=== PATIENT | male | born 1955 | race Caucasian/White ===

== ENCOUNTER 2016-10-22 12:22 | Inpatient (IN) | payer BC ==
[~2016-10-22] VITALS: Ht 175.3 cm; Wt 76.1 kg
[2016-10-22 13:05] LABS: BASOPHIL COUNT 0.1 K/uL (0-0.1); EOSINOPHIL (%) 0.7 % (0-5); EOSINOPHIL COUNT 0.1 K/uL (0-0.3); HEMATOCRIT 44.7 % (38.0-50.0); IMMATURE GRANULOCYTE (%) 0.3 % (0.0-0.7); IMMATURE GRANULOCYTE COUNT 0.2 K/uL; MCH 29.7 PG (29.0-34.0); MCV 87.5 FL (86-99); MEAN PLAT.VOLUME 10.1 uM^3 (9.0-12.4); MONOCYTE (%) 15.7 % (3-12); MONOCYTE COUNT 1.1 K/uL (0-0.8); NEUTROPHIL (%) 52.7 % (45-76); NEUTROPHIL COUNT 3.6 K/uL (1.8-6.4); PLATELET COUNT 236 K/uL (156-360); RBC DIS.WIDTH-CV 14.9 % (11.8-14.6); RBC DIS.WIDTH-SD 47.6 % (39-53); RED BLOOD COUNT 5.11 M/uL (4.00-5.50); WHITE BLOOD COUNT 6.7 K/uL (4.1-10.2)
[2016-10-22 13:18] LABS: CHLORIDE 104 mEq/L (99-109); POTASSIUM 4.6 mEq/L (3.7-5.4); SODIUM 137 mEq/L (136-147)
[2016-10-22 13:20] LABS: GLUCOSE 96 mg/dL (70-99)
[2016-10-22 13:21] LABS: ANION GAP 9 MEQ/L (2-14); INTER. NORMALIZED RATIO 1.2; PROTHROMBIN TIME 11.8 (9.2-11.2); PTT 28.2 (25-32)
[2016-10-22 13:24] LABS: GFR ESTIMATE (CALCULATED) > 59 mL/min/; UREA NITROGEN (BUN) 15 mg/dL (9-23)
[2016-10-22 13:32] LABS: TROP-I INTERPRETATION NEGATIVE
[2016-10-22] MEDS ORDERED: TYLENOL EXTRA500 MG PO (16:21)
[2016-10-22] MEDS ORDERED: LITE COAT ASPI325 M1 PO (16:21)
[2016-10-22 18:42] LABS: TROP-I INTERPRETATION NEGATIVE
[2016-10-22 19:59] VITALS: BP 130/91
[2016-10-22 22:18] LABS: TROP-I INTERPRETATION NEGATIVE; TROPONIN-I 0.12 ng/mL (0.0-0.30)
[2016-10-22 23:52] VITALS: BP 130/88
[2016-10-23 04:00] VITALS: BP 113/69
[2016-10-23 06:35] LABS: ANION GAP 10 MEQ/L (2-14); CHLORIDE 103 MEQ/L (99-109); GFR ESTIMATE (CALCULATED) > 59 mL/min/; POTASSIUM 4.2 MEQ/L (3.7-5.4); SAMPLE HEMOLYSIS CHECK 0; SAMPLE ICTERIC CHECK 0; SAMPLE LIPEMIA CHECK 0; SODIUM 137 MEQ/L (136-147); UREA NITROGEN (BUN) 22 mg/dL (9-23)
[2016-10-23 06:36] LABS: GLUCOSE 156 mg/dL (70-99)
[2016-10-23 06:37] LABS: HEMATOCRIT 42.8 % (38.0-50.0); MCH 30.4 PG (29.0-34.0); MCHC 33.6 G/DL (30.0-36.0); MCV 90.5 FL (86-99); MEAN PLAT.VOLUME 11.1 uM^3 (9.0-12.4); PLATELET COUNT 198 K/uL (156-360); RBC DIS.WIDTH-CV 14.7 % (11.8-14.6); RBC DIS.WIDTH-SD 48.7 % (39-53); RED BLOOD COUNT 4.73 M/uL (4.00-5.50)
[2016-10-23 06:38] LABS: WHITE BLOOD COUNT 3.4 K/uL (4.1-10.2)
[2016-10-23 06:52] LABS: TROP-I INTERPRETATION NEGATIVE; TROPONIN-I 0.08 ng/mL (0.0-0.30)
[2016-10-23 07:31] VITALS: BP 139/91
[2016-10-23 11:26] LABS: TROP-I INTERPRETATION NEGATIVE; TROPONIN-I 0.06 ng/mL (0.0-0.30)
[2016-10-23 11:54] VITALS: BP 134/84
[2016-10-23 15:29] VITALS: BP 140/88
[2016-10-23 15:58] LABS: TROP-I INTERPRETATION NEGATIVE; TROPONIN-I 0.11 ng/mL (0.0-0.30)
[2016-10-23 18:19] LABS: TROP-I INTERPRETATION NEGATIVE; TROPONIN-I 0.11 ng/mL (0.0-0.30)
[2016-10-23 19:32] VITALS: BP 138/88
[2016-10-23 22:18] LABS: TROP-I INTERPRETATION NEGATIVE; TROPONIN-I 0.11 ng/mL (0.0-0.30)
[2016-10-23 23:29] VITALS: BP 147/95
[2016-10-24 04:06] VITALS: BP 118/78
[2016-10-24 06:30] VITALS: BP 113/76
[2016-10-24 07:03] LABS: HEMATOCRIT 44.1 % (38.0-50.0); MCH 29.1 PG (29.0-34.0); MCHC 32.4 G/DL (30.0-36.0); MCV 89.6 FL (86-99); PLATELET COUNT 208 K/uL (156-360); RED BLOOD COUNT 4.92 M/uL (4.00-5.50)
[2016-10-24 07:13] LABS: WHITE BLOOD COUNT 8.6 K/uL (4.1-10.2)
[2016-10-24 07:15] VITALS: BP 124/76
[2016-10-24 11:51] VITALS: BP 140/88
[2016-10-24 15:01] VITALS: BP 125/93
[2016-10-24 20:19] VITALS: BP 107/56
[2016-10-25] VITALS: BP 126/86
[2016-10-25 04:00] VITALS: BP 122/79
[2016-10-25 07:30] VITALS: BP 137/85
[2016-10-25 10:58] VITALS: BP 133/81
[2016-10-25 14:58] VITALS: BP 138/85
[2016-10-25 19:35] VITALS: BP 146/89
[2016-10-26 00:04] VITALS: BP 113/81
[2016-10-26 04:06] VITALS: BP 121/84
[2016-10-26 07:39] VITALS: BP 120/91
[2016-10-26] MEDS ORDERED: ASPIR-LOW81 MG PO (09:49)
[2016-10-26] MEDS ORDERED: PREDNISONE20 MG PO ×2 (09:49→09:55)
[2016-10-26] MEDS ORDERED: FAMOTIDINE20 MG PO (09:49)
[2016-10-26] MEDS ORDERED: ATORVASTATIN CA40 MG PO (09:49)
[2016-10-26] MEDS ORDERED: GUAIFENESIN WI120 M1 PO (09:49)
[2016-10-26] MEDS ORDERED: CARVEDILOL3.125 MG PO (09:49)
[2016-10-26] MEDS ORDERED: NICOTINE PATCH1 EAC2 TD (09:49)
[2016-10-26] MEDS ORDERED: ADVAIR HFA120 INHALA IH (09:49)
[2016-10-26] MEDS ORDERED: BENZONATATE100 MG PO (09:49)
[2016-10-26] MEDS ORDERED: ENTRESTO 24 MG1 EACH PO (09:49)
[2016-10-26] MEDS ORDERED: SPIRIVA RESPIMAT4 GM IH (09:49)
[2016-10-26 11:20] VITALS: BP 119/88
[2016-10-26] MEDS ORDERED: CEFDINIR300 MG PO (11:39)
== END 2016-10-26 13:08 | disposition home or self-care (01) | DRG 190 ==
LOC: EME → EDBD 12:22 → EDOF 15:50 → 5SOUTH 15:50
PROVIDERS: Emergency Medicine; Hospitalist; Nurse Practitioner Adult Health
DX: J44.1 Chronic obstructive pulmonary disease with (acute) exacerbation (principal); J13 Pneumonia due to Streptococcus pneumoniae; R07.89 Other chest pain; R94.31 Abnormal electrocardiogram [ECG] [EKG]; F17.210 Nicotine dependence, cigarettes, uncomplicated; I25.10 Atherosclerotic heart disease of native coronary artery without angina pectoris; I25.2 Old myocardial infarction; Z95.5 Presence of coronary angioplasty implant and graft; Z91.19 Patient's noncompliance with other medical treatment and regimen
CPT/HCPCS: 71010; 71020; 78452; 80048; 84484; 85025; 85027; 85610; 85730; 93005; 93017; 93306; 94640; 94640 76; 94799; 99202; 99281; 99285; A9500; J0696; J1650; J2785; J2920; J7050; J7512

== ENCOUNTER 2017-02-06 06:47 | Inpatient (IN) | payer BC ==
[~2017-02-06] VITALS: Ht 175.3 cm; Wt 68.3 kg
[~2017-02-06 06:47] MED LIST: ADVAIR HFA120 INHALA IH; ASPIR-LOW81 MG PO; ATORVASTATIN CA40 MG PO; BENZONATATE100 MG PO; CARVEDILOL3.125 MG PO; CEFDINIR300 MG PO; ENTRESTO 24 MG1 EACH PO; FAMOTIDINE20 MG PO; GUAIFENESIN WI120 M1 PO; LITE COAT ASPI325 M1 PO; NICOTINE PATCH1 EAC2 TD; PREDNISONE20 MG PO; SPIRIVA RESPIMAT4 GM IH; TYLENOL EXTRA500 MG PO
[2017-02-06 07:29] LABS: HEMATOCRIT 42.6 % (38.0-50.0); MCH 29.2 PG (29.0-34.0); MCHC 34.3 G/DL (30.0-36.0); MCV 85.2 FL (86-99); MEAN PLAT.VOLUME 9.8 uM^3 (9.0-12.4); PLATELET COUNT 183 K/uL (156-360); RBC DIS.WIDTH-CV 15.1 % (11.8-14.6); RBC DIS.WIDTH-SD 47.1 % (39-53); WHITE BLOOD COUNT 16.1 K/uL (4.1-10.2)
[2017-02-06 07:41] LABS: D-DIMER ELISA 2.15 mg/L FEU (< 0.57); PTT 33.3 (25-32)
[2017-02-06 07:44] LABS: CHLORIDE 99 mEq/L (99-109); POTASSIUM 3.7 mEq/L (3.7-5.4); SODIUM 130 mEq/L (136-147)
[2017-02-06 07:45] LABS: MAGNESIUM 1.8 mg/dL (1.3-2.7)
[2017-02-06 07:46] LABS: GLUCOSE 147 mg/dL (70-99)
[2017-02-06 07:48] LABS: ANION GAP 12 MEQ/L (2-14)
[2017-02-06 07:49] LABS: TROP-I INTERPRETATION NEGATIVE; TROPONIN-I 0.06 ng/mL (0.0-0.30)
[2017-02-06 07:50] LABS: GFR ESTIMATE (CALCULATED) > 59 mL/min/
[2017-02-06 07:51] LABS: UREA NITROGEN (BUN) 24 mg/dL (9-23)
[2017-02-06 08:19] LABS: ABS NEUTROPHIL COUNT 15.1; ANISOCYTOSIS 1+; BAND NEUTROPHILS 13.2 % (0-8.0); EOSINOPHIL ABS CT 0; INSTRUMENT ABS NEUTROPHIL CT 14.3 K/uL; LYMPHOCYTES 4.4 % (15.0-45.0); PLAT.SUFFICIENCY ADEQUATE; SEG.NEUTROPHILS 80.7 % (46.0-76.0); TOXIC GRANULATION 1+
[2017-02-06] MEDS ORDERED: ASPIR-LOW81 MG PO (09:13)
[2017-02-06] MEDS ORDERED: CARVEDILOL6.25 MG PO (09:14)
[2017-02-06] MEDS ORDERED: ENTRESTO 24 MG1 EACH PO (09:15)
[2017-02-06] MEDS ORDERED: BREO ELLIPTA I1 EACH IH (09:16)
[2017-02-06] MEDS ORDERED: SPIRONOLACTONE25 MG PO (09:16)
[2017-02-06] MEDS ORDERED: PROAIR HFA8.5 GM IH (09:17)
[2017-02-06 11:51] VITALS: BP 120/72
[2017-02-06 16:34] VITALS: BP 105/71
[2017-02-06 16:46] LABS: METH RESISTANT S AUREUS PCR POSITIVE (NEGATIVE)
[2017-02-06 16:50] LABS: PROBE CHECK PASS
[2017-02-06 19:32] VITALS: BP 131/76
[2017-02-06 23:42] VITALS: BP 105/67
[2017-02-07 03:18] VITALS: BP 102/63
[2017-02-07 07:40] LABS: INTERNAL CONTROL VALID? YES
[2017-02-07 07:55] VITALS: BP 124/78
[2017-02-07 08:50] LABS: HEMATOCRIT 38.4 % (38.0-50.0); MCH 29.1 PG (29.0-34.0); MCHC 33.9 G/DL (30.0-36.0); MCV 85.9 FL (86-99); MEAN PLAT.VOLUME 10.3 uM^3 (9.0-12.4); PLATELET COUNT 189 K/uL (156-360); RBC DIS.WIDTH-CV 15.4 % (11.8-14.6); RBC DIS.WIDTH-SD 48.6 % (39-53); RED BLOOD COUNT 4.47 M/uL (4.00-5.50); WHITE BLOOD COUNT 9.4 K/uL (4.1-10.2)
[2017-02-07 09:15] LABS: ANION GAP 9 MEQ/L (2-14); CHLORIDE 101 MEQ/L (99-109); GFR ESTIMATE (CALCULATED) > 59 mL/min/; POTASSIUM 3.8 MEQ/L (3.7-5.4); SAMPLE HEMOLYSIS CHECK 0; SAMPLE ICTERIC CHECK 0; SAMPLE LIPEMIA CHECK 0; SODIUM 134 MEQ/L (136-147); UREA NITROGEN (BUN) 18 mg/dL (9-23)
[2017-02-07 09:22] LABS: GLUCOSE 96 mg/dL (70-99)
[2017-02-07 11:46] VITALS: BP 107/70
[2017-02-07 16:05] VITALS: BP 101/67
[2017-02-07 20:00] VITALS: BP 121/69
[2017-02-07 23:43] VITALS: BP 110/62
[2017-02-08 02:04] LABS: HEMATOCRIT 38.4 % (38.0-50.0); MCH 29.3 PG (29.0-34.0); MCHC 33.9 G/DL (30.0-36.0); MCV 86.5 FL (86-99); MEAN PLAT.VOLUME 9.8 uM^3 (9.0-12.4); PLATELET COUNT 197 K/uL (156-360); RBC DIS.WIDTH-CV 15.4 % (11.8-14.6); RED BLOOD COUNT 4.44 M/uL (4.00-5.50); WHITE BLOOD COUNT 8.1 K/uL (4.1-10.2)
[2017-02-08 02:12] LABS: CHLORIDE 101 mEq/L (99-109); SODIUM 135 mEq/L (136-147)
[2017-02-08 02:13] LABS: GLUCOSE 126 mg/dL (70-99); POTASSIUM 5.3 mEq/L (3.7-5.4)
[2017-02-08 02:15] LABS: ANION GAP 7 MEQ/L (2-14)
[2017-02-08 02:17] LABS: GFR ESTIMATE (CALCULATED) > 59 mL/min/
[2017-02-08 02:18] LABS: UREA NITROGEN (BUN) 23 mg/dL (9-23)
[2017-02-08 03:41] VITALS: BP 108/64
[2017-02-08 08:10] VITALS: BP 109/71
[2017-02-08] MEDS ORDERED: LEVOFLOXACIN750 MG PO (11:02)
[2017-02-08] MEDS ORDERED: IBUPROFEN400 MG PO (11:02)
== END 2017-02-08 12:05 | disposition home or self-care (01) | DRG 871 ==
LOC: EME 06:47 → EDOF 09:56 → 5SOUTH 09:56
PROVIDERS: Emergency Medicine; Hospitalist; Physician Assistant Medical
DX: A41.9 Sepsis, unspecified organism (principal); J44.0 Chronic obstructive pulmonary disease with (acute) lower respiratory infection; I11.0 Hypertensive heart disease with heart failure; I42.0 Dilated cardiomyopathy; J18.9 Pneumonia, unspecified organism; I50.22 Chronic systolic (congestive) heart failure; I95.9 Hypotension, unspecified; E78.5 Hyperlipidemia, unspecified; I25.10 Atherosclerotic heart disease of native coronary artery without angina pectoris; I25.2 Old myocardial infarction; J98.11 Atelectasis; Z87.891 Personal history of nicotine dependence; Z95.5 Presence of coronary angioplasty implant and graft; M79.604 Pain in right leg; M79.605 Pain in left leg; J44.1 Chronic obstructive pulmonary disease with (acute) exacerbation; R09.02 Hypoxemia; Y95 Nosocomial condition
CPT/HCPCS: 71010; 71020; 71275; 80048; 80202; 83605; 83735; 83880; 84484; 85025; 85027; 85379; 85610; 85730; 87040; 87070; 87205; 87449; 87641; 93005; 94640; 94640 76; 94799; 99202; 99281; 99284; J0692; J1170; J1650; J1885; J1956; J3370; J7040; J7050

== ENCOUNTER 2017-05-17 19:01 | Inpatient (IN) | payer BC ==
[~2017-05-17] VITALS: Ht 177.8 cm; Wt 75.7 kg
[~2017-05-17 19:01] MED LIST changes: +BREO ELLIPTA I1 EACH IH; +CARVEDILOL6.25 MG PO; +IBUPROFEN400 MG PO; +LEVOFLOXACIN750 MG PO; +PROAIR HFA8.5 GM IH; +SPIRONOLACTONE25 MG PO
[2017-05-17 19:55] LABS: EOSINOPHIL (%) 2.3 % (0-5); EOSINOPHIL COUNT 0.2 K/uL (0-0.3); IMMATURE GRANULOCYTE (%) 0.2 % (0.0-0.7); INSTRUMENT ABS NEUTROPHIL CT 5.8 K/uL; LYMPHOCYTE COUNT 1.7 K/uL (1.0-2.8); MCH 30.4 PG (29.0-34.0); MCHC 33.5 G/DL (30.0-36.0); MCV 90.9 FL (86-99); MEAN PLAT.VOLUME 10.4 uM^3 (9.0-12.4); MONOCYTE (%) 10.6 % (3-12); MONOCYTE COUNT 0.9 K/uL (0-0.8); NEUTROPHIL (%) 66.8 % (45-76); NEUTROPHIL COUNT 5.8 K/uL (1.8-6.4); PLATELET COUNT 211 K/uL (156-360); RBC DIS.WIDTH-CV 14.1 % (11.8-14.6); RBC DIS.WIDTH-SD 46.9 % (39-53); RED BLOOD COUNT 4.73 M/uL (4.00-5.50); WHITE BLOOD COUNT 8.7 K/uL (4.1-10.2)
[2017-05-17 20:09] LABS: CHLORIDE 102 mEq/L (99-109); POTASSIUM 3.7 mEq/L (3.7-5.4); SODIUM 134 mEq/L (136-147)
[2017-05-17 20:12] LABS: GLUCOSE 117 mg/dL (70-99)
[2017-05-17 20:13] LABS: ANION GAP 14 MEQ/L (2-14); TOTAL BILIRUBIN 1.4 mg/dL (0.0-1.0)
[2017-05-17 20:15] LABS: ALKALINE PHOSPHATASE 141 IU/L (3-129); GFR ESTIMATE (CALCULATED) > 59 mL/min/
[2017-05-17 20:16] LABS: UREA NITROGEN (BUN) 15 mg/dL (9-23)
[2017-05-17 20:19] LABS: TROP-I INTERPRETATION NEGATIVE; TROPONIN-I 0.14 ng/mL (0.0-0.30)
[2017-05-18 01:26] VITALS: BP 138/89
[2017-05-18 02:36] LABS: TROP-I INTERPRETATION NEGATIVE; TROPONIN-I 0.12 ng/mL (0.0-0.30)
[2017-05-18 07:35] VITALS: BP 107/66
[2017-05-18 09:06] LABS: HEMATOCRIT 44.6 % (38.0-50.0); MCH 30.1 PG (29.0-34.0); MCHC 32.3 G/DL (30.0-36.0); MCV 93.1 FL (86-99); MEAN PLAT.VOLUME 10.4 uM^3 (9.0-12.4); PLATELET COUNT 212 K/uL (156-360); RBC DIS.WIDTH-CV 14.6 % (11.8-14.6); RBC DIS.WIDTH-SD 49.2 % (39-53); RED BLOOD COUNT 4.79 M/uL (4.00-5.50); WHITE BLOOD COUNT 6.9 K/uL (4.1-10.2)
[2017-05-18 09:34] LABS: ALKALINE PHOSPHATASE 116 IU/L (3-129); ANION GAP 11 MEQ/L (2-14); CHLORIDE 103 MEQ/L (99-109); GFR ESTIMATE (CALCULATED) > 59 mL/min/; GLUCOSE 91 mg/dL (70-99); POTASSIUM 3.8 MEQ/L (3.7-5.4); SAMPLE HEMOLYSIS CHECK 0; SAMPLE ICTERIC CHECK 0; SAMPLE LIPEMIA CHECK 0; SODIUM 142 MEQ/L (136-147); TOTAL BILIRUBIN 1.7 MG/DL (0.0-1.0); UREA NITROGEN (BUN) 11 mg/dL (9-23)
[2017-05-18 09:44] LABS: TROP-I INTERPRETATION NEGATIVE; TROPONIN-I 0.16 ng/mL (0.0-0.30)
[2017-05-18 11:23] VITALS: BP 106/60
[2017-05-18 15:28] VITALS: BP 107/64
[2017-05-18 19:56] VITALS: BP 105/67
[2017-05-18 23:48] VITALS: BP 110/71
[2017-05-19 03:28] VITALS: BP 112/73
[2017-05-19 06:17] LABS: ALKALINE PHOSPHATASE 104 IU/L (3-129); ANION GAP 9 MEQ/L (2-14); CHLORIDE 104 MEQ/L (99-109); GFR ESTIMATE (CALCULATED) > 59 mL/min/; GLUCOSE 98 mg/dL (70-99); POTASSIUM 4.5 MEQ/L (3.7-5.4); SAMPLE HEMOLYSIS CHECK 0; SAMPLE ICTERIC CHECK 0; SAMPLE LIPEMIA CHECK 0; SODIUM 139 MEQ/L (136-147); UREA NITROGEN (BUN) 17 mg/dL (9-23)
[2017-05-19 06:19] LABS: TOTAL BILIRUBIN 1.3 MG/DL (0.0-1.0)
[2017-05-19 07:56] VITALS: BP 120/80
[2017-05-19] MEDS ORDERED: BREO ELLIPTA 21 EACH IH (10:51)
[2017-05-19] MEDS ORDERED: ENTRESTO 24 MG1 EACH PO (10:51)
[2017-05-19] MEDS ORDERED: INCRUSE ELLI62.5 MCG IH (10:51)
[2017-05-19 11:28] VITALS: BP 103/67
[2017-05-19 15:32] VITALS: BP 90/70
[2017-05-19 15:39] VITALS: BP 89/63
[2017-05-19 20:02] VITALS: BP 95/66
[2017-05-20 00:08] VITALS: BP 113/73
[2017-05-20 03:29] VITALS: BP 111/78
[2017-05-20 08:17] VITALS: BP 115/65
[2017-05-20 10:27] LABS: ANION GAP 6 MEQ/L (2-14); CHLORIDE 102 MEQ/L (99-109); POTASSIUM 4.4 MEQ/L (3.7-5.4); SAMPLE HEMOLYSIS CHECK 0; SAMPLE ICTERIC CHECK 0; SAMPLE LIPEMIA CHECK 0; SODIUM 139 MEQ/L (136-147)
[2017-05-20 10:33] LABS: GFR ESTIMATE (CALCULATED) > 59 mL/min/; GLUCOSE 135 mg/dL (70-99); UREA NITROGEN (BUN) 20 mg/dL (9-23)
[2017-05-20] MEDS ORDERED: FUROSEMIDE20 MG PO (10:49)
[2017-05-20] MEDS ORDERED: CARVEDILOL6.25 MG PO (10:49)
[2017-05-20] MEDS ORDERED: PREDNISONE20 MG PO (10:49)
[2017-05-20] MEDS ORDERED: AZITHROMYCIN500 M1 PO (10:49)
[2017-05-20 12:00] VITALS: BP 98/57
[2017-05-20] MEDS ORDERED: SPIRIVA1 INHALATI IH (12:07)
== END 2017-05-20 15:32 | disposition home health service (06) | DRG 292 ==
LOC: EME 19:01 → EDOF 23:44 → ENRESERV 23:51 → 5SOUTH 05-18 01:16
PROVIDERS: Emergency Medicine; Hospitalist; Internal Medicine Cardiovascular Disease; Physician Assistant Medical
DX: I11.0 Hypertensive heart disease with heart failure (principal); J44.1 Chronic obstructive pulmonary disease with (acute) exacerbation; I50.23 Acute on chronic systolic (congestive) heart failure; F17.210 Nicotine dependence, cigarettes, uncomplicated; I25.2 Old myocardial infarction; I25.10 Atherosclerotic heart disease of native coronary artery without angina pectoris; I42.0 Dilated cardiomyopathy; I08.1 Rheumatic disorders of both mitral and tricuspid valves; E78.5 Hyperlipidemia, unspecified; Z91.14 Patient's other noncompliance with medication regimen; Z95.5 Presence of coronary angioplasty implant and graft; E86.0 Dehydration; T50.1X5A Adverse effect of loop [high-ceiling] diuretics, initial encounter
CPT/HCPCS: 71010; 71020; 80048; 80053; 81003; 83880; 84484; 85025; 85027; 93005; 94640; 94640 76; 94799; 99202; 99281; 99285; J1650; J1940; J7050; J7512